=== PATIENT | male | born 1940 | race Caucasian/White ===

== ENCOUNTER → 2018-01-05 | Outpatient (CLI) | payer MEDICARE | END | disposition home or self-care (01) | LOC: RAH 14:14 | PROVIDERS: ATTEND Family Medicine | DX: M47.895 Other spondylosis, thoracolumbar region (principal); J02.9 Acute pharyngitis, unspecified | CPT/HCPCS: 71046 ==

== ENCOUNTER → 2018-03-08 | Outpatient (CLI) | payer MEDICARE | END | disposition home or self-care (01) | LOC: RAH 12:43 | PROVIDERS: ATTEND Family Medicine | DX: I73.9 Peripheral vascular disease, unspecified (principal); I10 Essential (primary) hypertension; E78.00 Pure hypercholesterolemia, unspecified | CPT/HCPCS: 93922 ==

== ENCOUNTER → 2018-03-14 | Outpatient (CLI) | payer MEDICARE | END | disposition home or self-care (01) | LOC: RAH 10:34 | PROVIDERS: ATTEND Family Medicine | DX: I73.9 Peripheral vascular disease, unspecified (principal); R09.89 Other specified symptoms and signs involving the circulatory and respiratory systems; I70.90 Unspecified atherosclerosis | CPT/HCPCS: 93925 ==

== ENCOUNTER 2020-02-26 06:07 | Day surgery (SDC) | payer MEDICARE ==
[~2020-02-26] VITALS: Ht 170.2 cm; Wt 93.9 kg
[~2020-02-26 06:07] MED LIST: A20IH1 NEB; IPRA0.2S54 NEB; LOSA25TA41 PO; METO-409 PO; MULT1CAP32 PO; OMEG100014 PO; RANO500T3 PO
[2020-02-26] MEDS ORDERED: SODIUM CHLORIDE 0.9% 1000ML 1,000 ML IV ONE (06:18)
[2020-02-26 06:41] VITALS: BP 126/70
[2020-02-26] MEDS ORDERED: CILO50TA PO (07:16)
[2020-02-26] MEDS ORDERED: ALBU18HF7 IH (07:16)
[2020-02-26] MEDS ORDERED: ESOM40CA54 PO (07:16)
[2020-02-26] MEDS ORDERED: OLME1TAB84 PO (07:16)
[2020-02-26] MEDS ORDERED: PYRI60TA PO (07:16)
[2020-02-26] MEDS ORDERED: GLIM4TAB36 PO (07:16)
[2020-02-26] MEDS ORDERED: ROSU40TA21 PO (07:16)
[2020-02-26] MEDS ORDERED: PANT40TA25 PO (07:16)
[2020-02-26] MEDS ORDERED: FLUT1DIS IH (07:16)
[2020-02-26] MEDS ORDERED: PROPOFOL 10 MG/ML 20ML VIAL IV ONE (07:58)
[2020-02-26] MEDS ORDERED: LIDOCAINE HCL 1% 20 ML VIAL ONE (07:58)
[2020-02-26] MEDS ORDERED: GLYCOPYRROLATE 0.2 MG/ML 5 ML VIAL ONE (08:05)
[2020-02-26 08:23] VITALS: BP 101/65
[2020-02-26 08:28] VITALS: BP 109/78
[2020-02-26 08:33] VITALS: BP 107/69
[2020-02-26 08:38] VITALS: BP 110/72
== END 2020-02-26 08:53 | disposition home or self-care (01) ==
LOC: DAH 06:07 → ENDO 06:07
PROVIDERS: ATTEND Internal Medicine
DX: K22.711 Barrett's esophagus with high grade dysplasia (principal); K22.2 Esophageal obstruction; K44.9 Diaphragmatic hernia without obstruction or gangrene; K29.50 Unspecified chronic gastritis without bleeding; K21.9 Gastro-esophageal reflux disease without esophagitis; J45.909 Unspecified asthma, uncomplicated; I10 Essential (primary) hypertension; E78.5 Hyperlipidemia, unspecified; I25.10 Atherosclerotic heart disease of native coronary artery without angina pectoris; Z98.890 Other specified postprocedural states; K64.9 Unspecified hemorrhoids; Z85.01 Personal history of malignant neoplasm of esophagus
CPT/HCPCS: 36415; 43239; A4215; A4221; A4222; A4223; A4606; A4620; A4663; J2704; J3490; J7030; U0003; 43200

== ENCOUNTER 2020-07-15 05:55 | Day surgery (SDC) | payer MEDICARE ==
[2020-07-15] VITALS (7 sets, daily range): BP systolic 103–124; BP diastolic 52–65
[~2020-07-15] VITALS: Ht 172.7 cm; Wt 97.5 kg
[~2020-07-15 05:55] MED LIST changes: +ALBU18HF7 IH; +CILO50TA PO; +ESOM40CA54 PO; +FLUT1DIS IH; +GLIM4TAB36 PO; +OLME-9 PO; +PANT40TA54 PO; +PYRI60TA PO; +ROSU40TA21 PO
[2020-07-15] MEDS ORDERED: SODIUM CHLORIDE 0.9% 1000ML 1,000 ML IV ONE (06:25)
[2020-07-15] MEDS ORDERED: PROPOFOL 10 MG/ML 20ML VIAL IV ONE (08:07)
[2020-07-15] MEDS ORDERED: MIDAZOLAM HCL 1 MG/ML 2ML VIAL ONE (08:07)
== END 2020-07-15 09:12 | disposition home or self-care (01) ==
LOC: DAH 05:55 → ENDO 05:55
PROVIDERS: ATTEND Internal Medicine Gastroenterology
DX: K22.711 Barrett's esophagus with high grade dysplasia (principal); K44.9 Diaphragmatic hernia without obstruction or gangrene; K31.7 Polyp of stomach and duodenum; K21.00 Gastro-esophageal reflux disease with esophagitis, without bleeding; K31.89 Other diseases of stomach and duodenum; J45.909 Unspecified asthma, uncomplicated; I10 Essential (primary) hypertension; I25.10 Atherosclerotic heart disease of native coronary artery without angina pectoris; Z88.0 Allergy status to penicillin; Z88.2 Allergy status to sulfonamides; K64.9 Unspecified hemorrhoids; E78.5 Hyperlipidemia, unspecified; Z86.010 Personal history of colon polyps; Z90.89 Acquired absence of other organs; Z98.890 Other specified postprocedural states; Z79.01 Long term (current) use of anticoagulants; Z79.899 Other long term (current) drug therapy; Z20.828 Contact with and (suspected) exposure to other viral communicable diseases
CPT/HCPCS: 36415; 43239; 82948 ×2; 88305; 88342; 93005; A4215; A4221; A4222; A4223; A4606; A4620; A4657 ×2; A4663; C9803; J2250; J2704; J7030; U0003

== ENCOUNTER → 2020-08-12 | Outpatient (CLI) | payer MEDICARE ==
[~2020-08-12] MED LIST changes: -A20IH1 NEB; -IPRA0.2S54 NEB; +REGADENOSON 0.4 MG/5 ML PF SYG IVP SCH
== END | disposition home or self-care (01) ==
LOC: SHCH 08:44
PROVIDERS: ATTEND Internal Medicine Cardiovascular Disease
DX: I25.10 Atherosclerotic heart disease of native coronary artery without angina pectoris (principal)
CPT/HCPCS: 78452; 93017; 96374; A9500 ×2; J2785